=== PATIENT | female | born 2000 | race Caucasian/White ===

== ENCOUNTER 2024-09-17 06:20 | Emergency (ER) | payer OTHER, SELFPAY ==
[2024-09-17] VITALS (12 sets, daily range): BP systolic 130–156; BP diastolic 83–99; PULSE 70–103; RESP 16; TEMP 36.7; O2SAT 97–98; BMI 37.6
--- NOTE | 2024-09-17 06:51 | ED.GENADULT ---
HPI - General Adult General Chief complaint: Chest Pain <Kathryn Matos MD - Last Filed: 09/17/24 23:53> Stated complaint: chest pain radiating down left arm <Kathryn Matos MD - Last Filed: 09/17/24 23:53> Time Seen by Provider: 09/17/24 06:34 <Kathryn Matos MD - Last Filed: 09/17/24 23:53> Source: patient <Kathryn Matos MD - Last Filed: 09/17/24 23:53> Mode of arrival: ambulatory <Kathryn Matos MD - Last Filed: 09/17/24 23:53> Limitations: no limitations <Kathryn Matos MD - Last Filed: 09/17/24 23:53> History of Present Illness HPI narrative: 24-year-old female presents the emergency department for evaluation of left upper back chest pain for the past 16 hours. Worsening pain for the past 4. Tried taking 400 mg of ibuprofen with no significant improvement in symptoms. No shortness of breath, no cardiac symptoms or palpitations. No prior history of similar symptoms. No known sick contacts, no fever. No hemoptysis or productive cough. No history of asthma. Reports that she took a test a couple weeks ago that was weakly positive and then has had 3 negative tests since. No history of DVT or PE. No prior history of cardiac disease. No family history of premature coronary artery disease. Pain is located in the left shoulder blade radiating down to the left chest. Sharp in nature, worse with deep breath. Right side not affected. Past medical history notable for depression. Anticoagulated on oral contraceptive. Antidepressant is Lexapro 10 mg once daily. Nonsmoker. ROS is notable for the chest symptoms as described above only, otherwise denies times 12 systems. <Kathryn Matos MD - Last Filed: 09/17/24 23:53> Related Data Home medications: Home Medications ?Medication ?Instructions ?Recorded ?Confirmed escitalopram oxalate 10 mg tablet 10 mg PO DAILY 09/17/24 09/17/24 (Lexapro) norethindrone-e.estradiol-iron .ROUTE 09/17/24 Previous Rx's ?Medication ?Instructions ?Recorded apixaban 5 mg (74 tabs) tablets in See Rx Instructions PO .COMPLEX 09/17/24 a dose pack (Eliquis DVT-PE Treat #74 ea 30D Start) norethindrone (contraceptive) 0.35 0.35 mg PO DAILY #84 tabs 09/17/24 mg tablet <Kathryn Matos MD - Last Filed: 09/17/24 23:53> Allergies/adverse reactions: Allergies Allergy/AdvReac Type Severity Reaction Status Date / Time kiwi AdvReac Verified 09/17/24 08:20 <Kathryn Matos MD - Last Filed: 09/17/24 23:53> PFSH PFSH Social History: Social History Smoking Status: Never smoker Second hand tobacco smoke exposure: No How often do you have a drink containing alcohol: never AUDIT-C Alcohol total score: 0 Non-prescribed substance use: denies use <Kathryn Matos MD - Last Filed: 09/17/24 23:53> Exam Const: Vital Signs, click to edit/add: Vital Signs - 24 hr 09/17/24 06:34 09/17/24 07:04 09/17/24 07:05 Temperature 98.0 F Pulse Rate 80 Pulse Rate [Pulse Oximeter] 103 H Respiratory Rate 16 Blood Pressure Blood Pressure [Le ft Upper Arm] 156/99 H Pulse Oximetry 97 97 97 Oxygen Delivery Me thod Room Air 09/17/24 07:15 09/17/24 07:30 09/17/24 07:31 Temperature Pulse Rate 81 79 71 Pulse Rate [Pulse Oximeter] Respiratory Rate Blood Pressure 130/83 Blood Pressure [Le ft Upper Arm] Pulse Oximetry 97 97 97 Oxygen Delivery Me thod 09/17/24 07:49 09/17/24 08:00 09/17/24 08:26 Temperature Pulse Rate 87 70 81 Pulse Rate [Pulse Oximeter] Respiratory Rate Blood Pressure Blood Pressure [Le ft Upper Arm] Pulse Oximetry 97 97 98 Oxygen Delivery Me thod 09/17/24 08:27 09/17/24 08:30 09/17/24 08:40 Temperature Pulse Rate 71 80 Pulse Rate [Pulse Oximeter] Respiratory Rate 16 Blood Pressure 135/97 H Blood Pressure [Le ft Upper Arm] Pulse Oximetry 97 97 Oxygen Delivery Me thod <Kathryn Matos MD - Last Filed: 09/17/24 23:53> Vital Signs, click to edit/add: Vital Signs - 24 hr 09/17/24 06:34 09/17/24 07:04 09/17/24 07:05 Temperature 98.0 F Pulse Rate 80 Pulse Rate [Pulse Oximeter] 103 H Respiratory Rate 16 Blood Pressure Blood Pressure [Le ft Upper Arm] 156/99 H Pulse Oximetry 97 97 97 Oxygen Delivery Me thod Room Air 09/17/24 07:15 09/17/24 07:30 09/17/24 07:31 Temperature Pulse Rate 81 79 71 Pulse Rate [Pulse Oximeter] Respiratory Rate Blood Pressure 130/83 Blood Pressure [Le ft Upper Arm] Pulse Oximetry 97 97 97 Oxygen Delivery Me thod 09/17/24 07:49 09/17/24 08:00 09/17/24 08:26 Temperature Pulse Rate 87 70 81 Pulse Rate [Pulse Oximeter] Respiratory Rate Blood Pressure Blood Pressure [Le ft Upper Arm] Pulse Oximetry 97 97 98 Oxygen Delivery Me thod 09/17/24 08:27 09/17/24 08:30 09/17/24 08:40 Temperature Pulse Rate 71 80 Pulse Rate [Pulse Oximeter] Respiratory Rate 16 Blood Pressure 135/97 H Blood Pressure [Le ft Upper Arm] Pulse Oximetry 97 97 Oxygen Delivery Me thod <Marivel Antonio MD - Last Filed: 09/17/24 09:10> Documenting provider has reviewed patient's vital signs: yes <Kathryn Matos MD - Last Filed: 09/17/24 23:53> Other: Seems anxious but cooperative, answers questions well. Well nourished and well hydrated. <Kathryn Matos MD - Last Filed: 09/17/24 23:53> HENMT: Common normals: normocephalic, moist oral mucous membranes, oropharynx normal and dentition normal <Kathryn Matos MD - Last Filed: 09/17/24 23:53> Head and scalp: normocephalic <Kathryn Matos MD - Last Filed: 09/17/24 23:53> Eye: Common normals: conjunctivae normal <Kathryn Matos MD - Last Filed: 09/17/24 23:53> General eye: normal appearance of both eyes <Kathryn Matos MD - Last Filed: 09/17/24 23:53> Conjunctiva: conjunctiva(e) normal <Kathryn Matos MD - Last Filed: 09/17/24 23:53> Neck & C-Spine: Common normals: full ROM and no lymphadenopathy <Kathryn Matos MD - Last Filed: 09/17/24 23:53> General: normal visual inspection <Kathryn Matos MD - Last Filed: 09/17/24 23:53> Chest: Common normals: inspection of chest normal and palpation of chest normal <Kathryn Matos MD - Last Filed: 09/17/24 23:53> Resp: Common normals: normal respiratory effort, no use of accessory muscles and clear to auscultation bilaterally <Kathryn Matos MD - Last Filed: 09/17/24 23:53> Effort & inspection: able to speak in complete sentences <Kathryn Matos MD - Last Filed: 09/17/24 23:53> Auscultation: clear to auscultation bilaterally <Kathryn Matos MD - Last Filed: 09/17/24 23:53> Cardio: Common normals: regular rate, regular rhythm, S1 normal heart sound, S2 normal heart sound and no murmurs <Kathryn Matos MD - Last Filed: 09/17/24 23:53> Rate: regular rate <Kathryn Matos MD - Last Filed: 09/17/24 23:53> Rhythm: regular rhythm <MD Erich Rivero Last Filed: 09/17/24 23:53> Heart sounds: S1 normal and S2 normal <MD Erich Rivero Last Filed: 09/17/24 23:53> GI: Common normals: Normal to inspection, nondistended, normoactive bowel sounds present, soft to palpation, non-tender, no hepatosplenomegaly and no masses <Kathryn Matos MD - Last Filed: 09/17/24 23:53> Palpation: soft and no hepatosplenomegaly <Kathryn Matos MD - Last Filed: 09/17/24 23:53> Back & Pelvis: Common normals: thoracic and lumbar spine normal to inspection and no thoracic nor lumbar tenderness <Kathryn Matos MD - Last Filed: 09/17/24 23:53> Extremity: Common normals: normal to inspection and normal capillary refill <Kathryn Matos MD - Last Filed: 09/17/24 23:53> Psych: Common normals: thought process normal <Kathryn Matos MD - Last Filed: 09/17/24 23:53> Appearance: grossly normal <Kathryn Matos MD - Last Filed: 09/17/24 23:53> Attitude: engaged <Kathryn Matos MD - Last Filed: 09/17/24 23:53> Activity/motor behavior: appropriate eye contact <Kathryn Matos MD - Last Filed: 09/17/24 23:53> Thought process: normal thought process <Kathryn Matos MD - Last Filed: 09/17/24 23:53> Insight: insight good <Kathryn Matos MD - Last Filed: 09/17/24 23:53> Skin: Common normals: no rashes or lesions noted <Kathryn Matos MD - Last Filed: 09/17/24 23:53> General skin exam: no rashes or lesions noted <Kathryn Matos MD - Last Filed: 09/17/24 23:53> Course Course ED Course: 24-year-old female with pleuritic type chest pain. Differential diagnosis is most likely pleurisy but cannot exclude pulmonary embolism, pneumonia, asthma, musculoskeletal etiology. Exam not suggestive of shingles. Less likely heart failure or acute coronary process. Counseled patient on likely diagnosis. Recommended labs to include D-dimer she does have risk factors of obesity, OCP use and female gender. EKG, chest x-ray, basic viral swab and labs. Will give Tylenol 1000 mg p.o. x1 and 5 mg of Flexeril for pain while we await findings. Mildly tachycardic on initial triage, was mid 90s at the time of my exam. <Kathryn Matos MD - Last Filed: 09/17/24 23:53> 24-year-old female with pleuritic type chest pain. Differential diagnosis is most likely pleurisy but cannot exclude pulmonary embolism, pneumonia, asthma, musculoskeletal etiology. Exam not suggestive of shingles. Less likely heart failure or acute coronary process. Counseled patient on likely diagnosis. Recommended labs to include D-dimer she does have risk factors of obesity, OCP use and female gender. EKG, chest x-ray, basic viral swab and labs. Will give Tylenol 1000 mg p.o. x1 and 5 mg of Flexeril for pain while we await findings. Mildly tachycardic on initial triage, was mid 90s at the time of my exam. Patient signed out to me at the start of my shift to follow up on CT scan due to elevated D-dimer. I discussed the results of the CT scan with the radiologist which shows small clot burden pulmonary embolus in the left lower lobe, small left effusion and no evidence of right heart strain. Her troponin is 0, vital signs are reassuring. I have discussed the diagnosis with her. She does note that she was traveling last week, they flew out to the [facility]. No prior history of PE, no identifiable family history. She does take an estrogen containing control pill and I am going to switch that to progestin only. Reviewed with her that that pill needs to be taken at the same time of day to be effective. Also discussed other alternatives for control. With regard to pulmonary embolism, I think it is reasonable to discharge home. I have prescribed Eliquis, discussed risks and rationale for anticoagulation. Recommended follow-up with primary care in the next couple of weeks to discuss duration. Return at any time for significant worsening such as severe shortness of breath, severe pain, new symptoms such as fever chills etcetera. <Marivel Antonio MD - Last Filed: 09/17/24 09:10> Reevaluation(s) Time of Reevaluation #1: 07:42 <Kathryn Matos MD - Last Filed: 09/17/24 23:53> Reevaluation #1: Informed patient of initial results, borderline elevated D-dimer. Recommend CT angio of the chest to look for pulmonary embolism. Will hand over care to incoming day shift partner. <Kathryn Matos MD - Last Filed: 09/17/24 23:53> Vital Signs Vital signs: Initial Vital Signs Respiratory Effort Normal, Spontaneous, Non-Labored 09/17/24 06:21 Respiratory Depth Normal 09/17/24 06:21 Respiratory Pattern Normal 09/17/24 06:21 Vital Signs Temperature 98.0 F 09/17/24 06:34 Pulse Rate 103 H 09/17/24 06:34 Respiratory Rate 16 09/17/24 06:34 Blood Pressure 156/99 H 09/17/24 06:34 Pulse Oximetry 97 09/17/24 06:34 Oxygen Delivery Method Room Air 09/17/24 06:34 Temperature 98.0 F 09/17/24 06:34 Pulse Rate 80 09/17/24 08:30 Respiratory Rate 16 09/17/24 08:40 Blood Pressure 135/97 H 09/17/24 08:27 Pulse Oximetry 97 09/17/24 08:30 Oxygen Delivery Method Room Air 09/17/24 06:34 <Kathryn Matos MD - Last Filed: 09/17/24 23:53> Initial Vital Signs Respiratory Effort Normal, Spontaneous, Non-Labored 09/17/24 06:21 Respiratory Depth Normal 09/17/24 06:21 Respiratory Pattern Normal 09/17/24 06:21 Vital Signs Temperature 98.0 F 09/17/24 06:34 Pulse Rate 103 H 09/17/24 06:34 Respiratory Rate 16 09/17/24 06:34 Blood Pressure 156/99 H 09/17/24 06:34 Pulse Oximetry 97 09/17/24 06:34 Oxygen Delivery Method Room Air 09/17/24 06:34 Temperature 98.0 F 09/17/24 06:34 Pulse Rate 80 09/17/24 08:30 Respiratory Rate 16 09/17/24 08:40 Blood Pressure 135/97 H 09/17/24 08:27 Pulse Oximetry 97 09/17/24 08:30 Oxygen Delivery Method Room Air 09/17/24 06:34 <Marivel Antonio MD - Last Filed: 09/17/24 09:10> Medications Administered Medications: Discontinued Medications Generic Name Dose Route Start Last Admin Trade Name Freq PRN Reason Stop Dose Admin Acetaminophen 1,000 mg 09/17/24 06:47 09/17/24 07:18 Acetaminophen 500 Mg Tablet PO 09/17/24 06:48 1,000 mg ONCE ONE Administration Cyclobenzaprine HCl 5 mg 09/17/24 06:47 09/17/24 07:18 Cyclobenzaprine Hcl 10 Mg Tablet PO 09/17/24 06:48 5 mg ONCE ONE Administration <Kathryn Matos MD - Last Filed: 09/17/24 23:53> Discontinued Medications Generic Name Dose Route Start Last Admin Trade Name oRny PRN Reason Stop Dose Admin Acetaminophen 1,000 mg 09/17/24 06:47 09/17/24 07:18 Acetaminophen 500 Mg Tablet PO 09/17/24 06:48 1,000 mg ONCE ONE Administration Cyclobenzaprine HCl 5 mg 09/17/24 06:47 09/17/24 07:18 Cyclobenzaprine Hcl 10 Mg Tablet PO 09/17/24 06:48 5 mg ONCE ONE Administration <Marivel Antonio MD - Last Filed: 09/17/24 09:10> Medical Decision Making Lab Data Lab results reviewed: Yes I reviewed the patient's lab results <Kathryn Matos MD - Last Filed: 09/17/24 23:53> Lab results narrative: Mildly elevated D-dimer, will order CT PA. Otherwise no significant leukocytosis, anemia, electrolyte abnormality. <Kathryn Matos MD - Last Filed: 09/17/24 23:53> Labs: Lab Results 09/17/24 09/17/24 Range/Units 06:47 06:56 WBC 8.07 (4.50-11.00) K/uL RBC 4.46 (4.00-5.20) m/uL Hgb 13.6 (12.0-16.0) gm/dL Hct 40.5 (33.0-51.0) % MCV 91 (80-100) fL MCH 31 (26-34) pg MCHC 34 (32-36) gm/dL RDW Coeff of Lakeisha 12.1 (11.5-15.5) % Plt Count 201 (140-440) K/uL Neut % (Auto) 61.8 (42.0-72.0) % Lymph % (Auto) 28.7 (20-44) % Boundary % (Auto) 6.3 (0.0-11.0) % Eos % (Auto) 2.7 (0.0-7.0) % Baso % (Auto) 0.4 (0.0-3.0) % Neut # (Auto) 4.98 (1.7-7.0) K/uL Lymph # (Auto) 2.32 (0.90-2.90) K/uL Boundary # (Auto) 0.50 (0.00-0.90) K/UL Eos # (Auto) 0.22 (0.00-0.50) K/uL Baso # (Auto) 0.03 (0.00-0.30) K/uL Abs Immat Gran (auto) 0.01 (0.00-0.30) K/uL Imm/Tot Granulo (auto) 0.1 % D-Dimer Quant (PE/DVT) 1.04 H (0.00-0.50) ug/ml Sodium 136 (135-149) mmol/L Potassium 4.4 (3.6-5.1) mmol/L Chloride 104 (96-114) mmol/L Carbon Dioxide 23 (20-32) mmol/L Anion Gap 9 (7-15) mEq/L BUN 16 (5-24) mg/dL Creatinine 0.7 (0.5-1.5) mg/dL Estimated Creat Clear 115.01 Estimated GFR 123 ml/min Glucose 103 (60-115) mg/dL Calcium 9.5 (8.4-10.6) mg/dL C-Reactive Protein 2.0 H (0.5-1.0) mg/dL NT-Pro-B Natriuret Pep 61 pg/mL HCG, Qual Negative (Negative) SARS-CoV-2 (PCR) Negative SARS-CoV-2 (Negative) Influenza Type A (PCR) Negative PCR FLU A (Negative) Influenza Type B (PCR) Negative PCR FLU B (Negative) RSV (PCR) Negative PCR RSV (Negative) POC Troponin I 0.00 L (0.01-0.04) ng/ml <Kathryn Matos MD - Last Filed: 09/17/24 23:53> Lab Results 11/13/24 11/13/24 Range/Units 06:47 06:56 WBC 8.07 (4.50-11.00) K/uL RBC 4.46 (4.00-5.20) m/uL Hgb 13.6 (12.0-16.0) gm/dL Hct 40.5 (33.0-51.0) % MCV 91 (80-100) fL MCH 31 (26-34) pg MCHC 34 (32-36) gm/dL RDW Coeff of Lakeisha 12.1 (11.5-15.5) % Plt Count 201 (140-440) K/uL Neut % (Auto) 61.8 (42.0-72.0) % Lymph % (Auto) 28.7 (20-44) % Boundary % (Auto) 6.3 (0.0-11.0) % Eos % (Auto) 2.7 (0.0-7.0) % Baso % (Auto) 0.4 (0.0-3.0) % Neut # (Auto) 4.98 (1.7-7.0) K/uL Lymph # (Auto) 2.32 (0.90-2.90) K/uL Boundary # (Auto) 0.50 (0.00-0.90) K/UL Eos # (Auto) 0.22 (0.00-0.50) K/uL Baso # (Auto) 0.03 (0.00-0.30) K/uL Abs Immat Gran (auto) 0.01 (0.00-0.30) K/uL Imm/Tot Granulo (auto) 0.1 % D-Dimer Quant (PE/DVT) 1.04 H (0.00-0.50) ug/ml Sodium 136 (135-149) mmol/L Potassium 4.4 (3.6-5.1) mmol/L Chloride 104 (96-114) mmol/L Carbon Dioxide 23 (20-32) mmol/L Anion Gap 9 (7-15) mEq/L BUN 16 (5-24) mg/dL Creatinine 0.7 (0.5-1.5) mg/dL Estimated Creat Clear 115.01 Estimated GFR 123 ml/min Glucose 103 (60-115) mg/dL Calcium 9.5 (8.4-10.6) mg/dL C-Reactive Protein 2.0 H (0.5-1.0) mg/dL NT-Pro-B Natriuret Pep 61 pg/mL HCG, Qual Negative (Negative) SARS-CoV-2 (PCR) Negative SARS-CoV-2 (Negative) Influenza Type A (PCR) Negative PCR FLU A (Negative) Influenza Type B (PCR) Negative PCR FLU B (Negative) RSV (PCR) Negative PCR RSV (Negative) POC Troponin I 0.00 L (0.01-0.04) ng/ml <Marivel Antonio MD - Last Filed: 09/17/24 09:10> Imaging Data CT scan - chest: Attestation: I have reviewed the pertinent imaging results. <Marivel Antonio MD - Last Filed: 09/17/24 09:10> Radiologist's impression: Patient: TREVOR PARRISH Facility: [facility] Site . Site : 2000 Study: CT-Chest Angio PE 95CC ISOVUE 370-09/17/2024 8:24:35 AM Ordering Physician: Shawna Peralta Final Report: INDICATION: Left-sided chest pain with elevated D-dimer COMPARISON: None TECHNIQUE: : CT examination of the chest was performed with the uneventful intravenous administration of 95 cc of Isovue 370 while thin axial sections were obtained from above the apices of the lungs to the lung bases. The examination was timed as a pulmonary artery angiogram. Please note that all CT scans at this facility use dose modulation, iterative reconstruction, and/or weight-based dosing when appropriate to reduce radiation dose to as low as reasonably achievable. FINDINGS: : HEART and MEDIASTINUM: The heart size is normal. There is no mediastinal or hilar adenopathy or mass. There is no pericardial effusion.The RV to LV ratio is 0.75. This is not compatible with right heart strain. PULMONARY ARTERIAL CIRCULATION: Small clot burden pulmonary embolus mainly involving the left lower lobe. LUNGS and PLEURAL SPACES: Left basilar opacity probably atelectasis. Small left effusion.Right lung and right pleural space appear normal VISUALIZED UPPER ABDOMEN: Probable hepatic steatosis. Otherwise, the limited visualized upper abdominal structures appear normal. OSSEOUS STRUCTURES: Age-appropriate appearance. No acute fracture or destructive process. TUBES and LINES: None. IMPRESSION: 1. Small clot burden pulmonary embolus mainly involving the left lower lobe. 2. Left basilar opacity probably atelectasis. Small left effusion. 3. No evidence of right heart strain Please note that all CT scans at this facility use dose modulation, iterative reconstruction, and/or weight-based dosing when appropriate to reduce radiation dose to as low as reasonably achievable. Dictated by Alphonso Wheeler MD @ 09/17/2024 8:32:43 AM ----- ADDENDUM ----- I discussed the above findings with Dr. Kathryn Matos at 8:32 a.m. on September 17, 2024. Dictated by Alphonso Wheeler MD @ Sep 17 2024 8:33AM <Marivel Antonio MD - Last Filed: 09/17/24 09:10> ECG Data Attestation: I personally reviewed and interpreted this ECG as follows: <Kathryn Matos MD - Last Filed: 09/17/24 23:53> Prior ECG tracings: not available for review <Kathryn Matos MD - Last Filed: 09/17/24 23:53> Interpretation: Sinus rhythm, rate 101. Normal intervals and axis. No significant ST or T-wave abnormalities. Normal EKG other than mild tachycardia <Kathryn Matos MD - Last Filed: 09/17/24 23:53> Discharge Plan Discharge Clinical Impression: Pulmonary embolism <Kathryn Matos MD - Last Filed: 09/17/24 23:53> Patient Disposition: Home, Self-Care <Kathryn Matos MD - Last Filed: 09/17/24 23:53> Condition: Stable <Kathryn Matos MD - Last Filed: 09/17/24 23:53> Instructions: Pulmonary Embolism (ED), Blood Thinners (ED) <Kathryn Matos MD - Last Filed: 09/17/24 23:53> Additional Instructions: Eliquis prescribed for anticoagulation. Please discontinue your current control pill and start norethindrone as prescribed, important to take this at the same time every day. Follow-up with your regular clinic doctor in the next couple of weeks for recheck and to discuss if any additional evaluation is needed as well as duration of anticoagulation. Return any time for severe uncontrolled pain, worsening shortness of breath, fevers, chills, or other worsening symptoms. <Kathryn Matos MD - Last Filed: 09/17/24 23:53> Prescriptions: New norethindrone (contraceptive) 0.35 mg tablet 0.35 mg PO DAILY Qty: 84 0RF Eliquis DVT-PE Treat 30D Start 5 mg (74 tabs) tablets,dose pack See Rx Instructions .ROUTE .COMPLEX Qty: 74 0RF Rx Instructions: orally per package directions No Action escitalopram oxalate [Lexapro] 10 mg tablet 10 mg PO DAILY norethindrone-e.estradiol-iron [ ()] .ROUTE <Kathryn Matos MD - Last Filed: 09/17/24 23:53> Follow Up/Referrals: Holli Sewell MD [Primary Care Provider] - <Kathryn Matos MD - Last Filed: 09/17/24 23:53> Stand Alone Forms: MyHealth Info Instructions <Kathryn Matos MD - Last Filed: 09/17/24 23:53>
--- OUTSIDE RECORDS SUMMARY | 2024-09-17 07:10 | XMS_ITS | Clinical Summary ---
Author Organization [facility] Address [place], [place] [address] Care Team Providers Care Job Estimator Name Role Phone Holli Sewell MD Primary Care Prov ider Allergies No known active allergies Medications Medication Sig Dispensed Refills Start Date End Date Status norethin ravinder-eth estrad-fe, 1.5-30 mg-mcg, (.04/03, ,) 1.5 mg-30 mcg (21)/75 mg (7) tablet Take 1 Tablet by mouth once daily. 11/05/2017 Active Cetirizine 10 mg cap Acti ve escitalopram oxalate (LEXAPRO) 10 mg tabletIndications:Anx iety and depression Take 1 Tablet (10 mg) by mouth once daily in the morning. 90 Tablet 3 06/25/2024 Active Encounters Date Type Department Care Team Description 06/25/2024 9:00 AM CDT Office Visit [facility] [address] [place] [address] Holli Sewell MD Hypertension Care Management; Follow Up; Immunization/Injectio n 06/25/2024 Travel from Last 3 Months Immunizations Name Administration Dates Next Due COVID-19 vaccine (Moderna Cristian radha 50mcg/0.25mL) ROBIN COTTON 11/29/2021 DTaP 06/06/2004, 0,1999,1998,1999 HIB PRP-T (ActHIB,Hiberix) 08/13/2000,,1999,1998 HPV 9 (Gardasil 9) 01/03/2021,11/11/2020, 014 Hepatitis B, Unspecified 1999,1999,0 1999 Inactivated Polio Vaccine 05/28/2000,1999, 1999 MMR 06/06/2004,05/28/2000 Polio Virus, Unspecified 06/06/2004 TD, UNSPECIFIED 08/16/2009 Tdap 06/25/2024 Varicella Vaccine 12/26/2001 Family History Medical History Relation Name Comments No Known Problems Brother Hyperlipidemia Father Dementia Maternal Grandfather Diabetes Maternal Grandmother Cancer-breast Paternal Grandfather Stroke Paternal Grandmother Heart attack Paternal Uncle 1 Heart attack Paternal Uncle 2 Relation Name Status Comments Brother Alive Father Alive Maternal Grandfather Maternal Grandmother Mother Alive Paternal Grandfather Paternal Grandmother Paternal Uncle 1 Alive Paternal Uncle 2 Alive Social History Tobacco Use Types Packs/Day Years Used Date Smoking Tobacco: Never Smokeless Tobacco: Never Tobacco Cessation:Counseling Given: Not Answered Alcohol Use Standard Drinks/Week Comments Yes 0 (1 standard drink = 0.6 oz pur e alcohol) PHQ-2 Answer Date Recorded PHQ-2 TOTAL SCORE 2 06/25/2024 Social Connections Answer Date Recorded Do you often feel lonely or isolated from those around you? 0 06/25/2024 Alcohol Use Answer Date Recorded How often do you have a drink containing alcohol ? 2 05/28/2024 How many drinks containing a lcohol do you have on a typical day when you are drinking? 0 05/28/2024 How often do you have five or more drinks on one occasion? 0 05/28/2024 Financial Resource Strain Answer Date R ecorded Difficulty of Paying Living Expenses 3 06/25/2024 Difficulty of Paying Living Expenses Not on file 06/25/2024 Food Insecurity Answer Date Recorded Do you worry your food will run out before you are able to buy more? 1 06/25/2024 Transportation Needs Answer Date Record ed Does lack of transportation keep you from medica l appointments? 1 06/25/2024 Does lack of transportation keep you from work, meetings or getting things that you need? 1 06/25/2024 Housing Stability Answer Date Recorded What is your housing situation today? 1 06/25/2024 Sex and Gender Information Value Date Recorded Sex Assigned at Female 05/28/2024 1:00 PM CDT Gender Identity Female 05/28/2024 1:00 PM CDT Sexual Orientation Not on file Obstetrics History Last Filed Vital Signs Vital Sign Reading Time Taken Comments Blood Pressure 126/84 06/25/2024 8:58 AM CDT Pulse 67 06/25/2024 8:58 AM CDT Temperature - - Respiratory Rate - - Oxygen Saturation 99% 06/25/2024 8:58 AM CDT Inhaled Oxygen Concentration - - Weight 102.5 kg (226 lb) 05/28/2024 1:26 PM CDT Height 167 cm (5' 5.75) 05/28/2024 1:26 PM CDT Body Mass Index 36.76 05/28/2024 1:26 PM CDT Plan of Treatment Health Maintenance Due Date Last Done Comments HIV for age 15-65 2014 Hepatitis C screening for age 18-79 2017 HPV series for age 9-26 (3 - 3-dose series) 03/28/2021 01/03/2021, 11/11/2020, 06/29/2014 COVID-19 vaccine series ( season) 2024 11/29/2021 Influenza for age 9-49 07/06/2024 BMI (ht and wt on same day) for age 18+ 05/28/2025 05/28/2024 Depression screening for age 12+ 06/25/2025 06/25/2024, 05/28/2024 Pap test for age 21-65 01/03/2026 3 ([facility]) Tetanus booster 06/25/2034 06/25/2024, 08/16/2009 Tdap Completed 06/25/2024 Pneumococcal series for age 6-64 Aged Out No longer eligible based on patient's age to complete this topic Care Teams Job Estimator Relationship Specialty Start Date End Date Holli Sewell MD [address] [place] [address] PCP - General Family Practice 05/28/24
[2024-09-17] MEDS: CYCLOBENZAPRINE HCL 10 MG TABLET 5 MG PO (07:18)
[2024-09-17] MEDS: ACETAMINOPHEN 500 MG TABLET 1000 MG PO (07:18)
[2024-09-17 07:22] LABS: Basophils Absolute Auto 0.03 K/uL (0.00-0.30); Basophils Percent Auto 0.4 % (0.0-3.0); Eosinophils Absolute Auto 0.22 K/uL (0.00-0.50); Eosinophils Percent Auto 2.7 % (0.0-7.0); Hematocrit 40.5 % (33.0-51.0); Hemoglobin* 13.6 gm/dL (12.0-16.0); Immature Granulocytes Abs Auto 0.01 K/uL (0.00-0.30); Immature Granulocytes Pct Auto 0.1 %; Lymphocytes Absolute Auto 2.32 K/uL (0.90-2.90); Lymphocytes Percent Auto 28.7 % (20-44); Mean Corpuscular HGB Conc 34 gm/dL (32-36); Mean Corpuscular Hemoglobin 31 pg (26-34); Mean Corpuscular Volume 91 fL (80-100); Monocytes Percent Auto 6.3 % (0.0-11.0); Neutrophils Absolute Auto 4.98 K/uL (1.7-7.0); Neutrophils Percent Auto 61.8 % (42.0-72.0); Platelet Count* 201 K/uL (140-440); RDW Coefficient of Variation % 12.1 % (11.5-15.5); Red Blood Count 4.46 m/uL (4.00-5.20); White Blood Count* 8.07 K/uL (4.50-11.00)
[2024-09-17 07:26] LABS: Slide Review Reflex No
[2024-09-17 07:29] LABS: Chloride* 104 mmol/L (96-114); Potassium* 4.4 mmol/L (3.6-5.1); Sodium* 136 mmol/L (135-149)
[2024-09-17 07:31] LABS: Creatinine* 0.7 mg/dL (0.5-1.5); Est. Creatinine Clearance* 115.01; Estimated Glomerular Filt Rate 123 ml/min
[2024-09-17 07:32] LABS: Anion Gap 9 mEq/L (7-15); Blood Urea Nitrogen* 16 mg/dL (5-24); Carbon Dioxide* 23 mmol/L (20-32); D Dimer Quantitative* 1.04 ug/ml (0.00-0.50)
[2024-09-17 07:33] LABS: Calcium* 9.5 mg/dL (8.4-10.6); Glucose* 103 mg/dL (60-115)
--- NOTE | 2024-09-17 07:39 | CRLHL7_ITS ---
For Patients: As a result of the Century Cures Act, medical imaging exams and procedure reports are released immediately into your electronic medical record. You may view this report before your referring provider. If you have questions, please contact your health care provider. INDICATION: Left-sided chest pain with elevated D-dimer COMPARISON: None TECHNIQUE: : CT examination of the chest was performed with the uneventful intravenous administration of 95 cc of Isovue 370 while thin axial sections were obtained from above the apices of the lungs to the lung bases. The examination was timed as a pulmonary artery angiogram. Please note that all CT scans at this facility use dose modulation, iterative reconstruction, and/or weight-based dosing when appropriate to reduce radiation dose to as low as reasonably achievable. FINDINGS: : HEART and MEDIASTINUM: The heart size is normal. There is no mediastinal or hilar adenopathy or mass. There is no pericardial effusion.The RV to LV ratio is 0.75. This is not compatible with right heart strain. PULMONARY ARTERIAL CIRCULATION: Small clot burden pulmonary embolus mainly involving the left lower lobe. LUNGS and PLEURAL SPACES: Left basilar opacity probably atelectasis. Small left effusion.Right lung and right pleural space appear normal VISUALIZED UPPER ABDOMEN: Probable hepatic steatosis. Otherwise, the limited visualized upper abdominal structures appear normal. OSSEOUS STRUCTURES: Age-appropriate appearance. No acute fracture or destructive process. TUBES and LINES: None. IMPRESSION: 1. Small clot burden pulmonary embolus mainly involving the left lower lobe. 2. Left basilar opacity probably atelectasis. Small left effusion. 3. No evidence of right heart strain Please note that all CT scans at this facility use dose modulation, iterative reconstruction, and/or weight-based dosing when appropriate to reduce radiation dose to as low as reasonably achievable. Dictated by Alphonso Wheeler MD @ 09/17/2024 8:32:43 AM (Electronically Signed)
[2024-09-17 07:42] LABS: NT Pro B Type NatriureticPept* 61 pg/mL
[2024-09-17 07:48] LABS: PCR FLU A Negative PCR FLU A (Negative); PCR FLU B Negative PCR FLU B (Negative); PCR RSV Negative PCR RSV (Negative); SARS PCR* Negative SARS-CoV-2 (Negative)
[2024-09-17 07:56] LABS: HCG Qualitative Serum* Negative (Negative)
--- NOTE | 2024-09-17 14:42 | ED.NURSE ---
Pt called to request Rx be sent to [facility] in [place] due to [facility] not having the rx pt needed. Rx was called in to [facility] in [place]. Pt updated.
== END 2024-09-17 09:19 | disposition home or self-care (01) ==
PROVIDERS: Emergency Provider Family Medicine; PCP Student in an Organized Health Care Education/Training Program
DX: I26.99 Other pulmonary embolism without acute cor pulmonale (principal)
CPT/HCPCS: 36415; 71275; 80048; 83880; 84484; 84703; 85025; 85379; 86140; 87631; 93005; 94761; 99284; 99285; A9270; Q9967